=== PATIENT | male | born 1980 | race Two or more races ===

== ENCOUNTER 2019-03-28 14:59 | Emergency (ER) | payer MEDICAID ==
[~2019-03-28] VITALS: Ht 175.3 cm; Wt 83.9 kg
[2019-03-28] MEDS ORDERED: SODIUM CHLORIDE 0.9% 1,000 ML IV ONE ×3 (15:14→17:45)
[2019-03-28] MEDS ORDERED: InsuLIN REG 1unit/0.01ml Soln (100units/ml) IV ONE (15:15)
[2019-03-28 15:59] LABS: Basophils # (auto) 0.1 uL; Eosinophils # (auto) 0.1 uL; Eosinophils % (auto) 1.6 % (0.0-7.0); Monocytes # (auto) 0.5 uL; Neutrophils % (auto) 72.5 % (37.0-80.0)
[2019-03-28 16:00] LABS: Basophils % (auto) 0.8 % (0.0-2.0); Hematocrit 40.3 % (41.0-53.0); Lymphocytes # (auto) 1.2 uL; Mean Corpuscular Hemoglobin 32.6 pg (28.0-32.0); Mean Corpuscular Hgb Conc. 37.4 g/dL (32.0-36.0); Mean Corpuscular Volume 87.3 fL (80.0-100.0); Monocytes % (auto) 7.1 % (0.0-12.0); Neutrophils # (auto) 4.7 uL; Nucleated Red Blood Cells % 0.1 %; Platelet Count (auto) 273 10^3/uL (140-450); Red Blood Cells 4.61 10^6/uL (4.5-5.90); Red Cell Distribution Width 13.7 % (11.8-14.3); White Blood Cell 6.5 10^3/uL (4.4-10.8)
[2019-03-28 16:07] LABS: Albumin 3.8 g/dL (3.4-5.0); Potassium 4.5 mmol/L (3.5-5.1)
[2019-03-28 17:34] LABS: BUN/Creatinine Ratio 10.5
[2019-03-28 17:37] LABS: Aspartate Aminotransferase 43.2 U/L (15-37)
[2019-03-28] MEDS ORDERED: InsuLIN REG 1unit/0.01ml Soln (100units/ml) SC ONE (17:45)
[2019-03-28 17:50] VITALS: BP 144/85
[2019-03-28 17:52] LABS: Total Protein 7.3 g/dL (6.4-8.2)
== END 2019-03-28 18:56 | disposition home or self-care (01) ==
LOC: ER 14:59
DX: E11.65 Type 2 diabetes mellitus with hyperglycemia (principal); E78.5 Hyperlipidemia, unspecified; I10 Essential (primary) hypertension
CPT/HCPCS: 36415; 80053; 82962; 85025; 96361; 96372; 96374; 99283; J1815; J7030